=== PATIENT | female | born 1960 | race Caucasian/White ===

== ENCOUNTER → 2020-12-26 | Day surgery (SDC) | payer OTHER ==
--- NOTE | 2020-12-25 19:48 | PCM.PREANE ---
Preanesthetic Assessment - Procedure Proposed Procedure: Right Reverse Total Shoulder - Imaging/EKG Impressions: EKG 12/05/2020: NSR HR 97 Chest xray 12/05/2020: Slight degree of pulmonary underexpansion. No other acute findings are seen. 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 Endocrine/Metabolic History: Reports: Diabetes, Type II, Obesity/BMI 30+ Dermatologic History: Reports: Cellulitis, Psoriasis - Past Surgical History GI Surgical History: Reports: Colonoscopy - SUBSTANCE USE Tobacco Use Status *Q: Former Tobacco User Recreational Drug Use History: No - HOME MEDS Home Medications: Home Meds Ascorbic Acid [Vitamin C] 1 cap PO DAILY 12/23/20 [History] Aspirin [Aspirin EC] 81 mg PO DAILY 12/23/20 [History] Cholecalciferol (Vitamin D3) [Vitamin D3] 1 cap PO DAILY 12/23/20 [History] Glucosam/Chond/Collagen/Hyalur [Glucosamine Chondroitin] 1 cap PO DAILY 12/23/20 [History] L.acidoph,Paracasei, B.lactis [Probiotic] 1 cap PO DAILY 12/23/20 [History] Magnesium 400 mg PO DAILY 12/23/20 [History] Non-Formulary Medication [NF Drug] 1 cap PO DAILY 12/23/20 [History] Non-Formulary Medication [NF Drug] 1 tab PO DAILY 12/23/20 [History] Non-Formulary Medication [NF Drug] 2 tab PO DAILY 12/23/20 [History] Non-Formulary Medication [NF Drug] 2 tab PO DAILY 12/23/20 [History] Omeprazole Magnesium [Prilosec Otc] 20 mg PO DAILY 12/23/20 [History] Tumeric/Ging/[place]/Oreg/Capryl [Candicidal Capsule] 1 cap PO DAILY 12/23/20 [History] Zinc 50 mg PO DAILY 12/23/20 [History] amLODIPine [Norvasc] 5 mg PO DAILY 12/23/20 [History] metFORMIN [Glucophage XR] 500 mg PO BID 12/23/20 [History] - CURRENT (IN HOUSE) MEDS Current Meds: Current Medications Acetaminophen (Acetaminophen 325 Mg Tab) 975 mg PO ONETIME GUSTABO Stop: 12/26/20 16:00 Lactated Ringer's (Ringers, Lactated) 1,000 mls @ 125 mls/hr IV ASDIRECTED GUSTABO Stop: 12/26/20 23:00 Lidocaine/Sodium Bicarbonate (Lidocaine 1%/Sod Bicarbonate In Ns 8.4% 1 Ml Syringe) 0.25 ml IDERM ONETIME PRN PRN Reason: Prior to IV Start Stop: 12/26/20 18:00 Oxycodone HCl (Oxycodone Er 10 Mg Tab.Er) 10 mg PO ONETIME GUSTABO Stop: 12/26/20 16:00 Pregabalin (Pregabalin 25 Mg Cap) 50 mg PO ONETIME GUSTABO Stop: 12/26/20 16:00 Sodium Chloride (Sodium Chloride 0.9% 10 Ml Syringe) 10 ml FLUSH ASDIRECTED PRN PRN Reason: Keep Vein Open Stop: 12/26/20 18:00
[~2020-12-26] MED LIST: Acetaminophen 325 MG Tab PO SCH; Albuterol 0.083% 2.5 MG/3 ML Neb Soln NEB ONE; Cyclobenzaprine 10 MG Tab PO PRN; EPINEPHrine 1 MG/ML SDV ONE; Lactated Ringers 1,000 ML IV SCH; Lactated Ringers 1,000 ML ONE; Lidocaine 1% 2 ML ONE; Lidocaine 1% 4 ML ONE; Lidocaine 1%/Sod Bicarbonate in NS 8.4% 1 ML Syringe IDERM PRN; Midazolam 1 MG/ML 2 ML SDV ONE; Ondansetron 4 MG/2 ML SDV ONE; Pregabalin 25 MG Cap PO SCH; Propofol 200 MG/20 ML SDV ONE; Rocuronium 50 MG/5 ML Vial ONE; Ropivacaine 0.5% 5 MG/ML 30 ML SDV ONE; Sodium Chloride 0.9% 10 ML Syringe FLUSH PRN; Vancomycin 1 GM SDV ONE; ceFAZolin 1 GM Vial ONE; ePHEDrine 50 MG/ML SDV ONE; fentaNYL 100 MCG/2 ML SDV IVPUSH PRN; fentaNYL 100 MCG/2 ML SDV ONE; oxyCODONE 5 MG Tab PO PRN; oxyCODONE ER 10 MG TAB.ER PO SCH
--- NOTE | 2020-12-26 09:23 | PCM.PREANE ---
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) Other: Reports: Diabetes (119 this am) - Physical Assessment NPO Status Date: 12/25/20 NPO Status Time: 00:00 Height: 1.57 m Weight: 98.8 kg ASA Class: 3 Mental Status: Alert & Oriented x3 Airway Class: Mallampati = 2 Dentition: Reports: Partial (top and bottom) Thyro-Mental Finger Breadths: 2 Mouth Opening Finger Breadths: 2 ROM/Head Extension: Full Lungs: Clear to Auscultation, Normal Respiratory Effort Cardiovascular: Regular Rate, Regular Rhythm - Imaging/EKG Impressions: EKG NSR rate97 - Allergies Allergies/Adverse Reactions: Allergies Allergy/AdvReac Type Severity Reaction Status Date / Time rosuvastatin [From Crestor] Allergy Muscle Verified 12/23/20 11:38 Aches - Blood Blood Available: No Product(s) Available: None - Anesthesia Plan Pre-Op Medication Ordered: None - Acknowledgements Anesthesia Type Planned: General Anesthesia, Regional Block (right interscalene block for post-op pain control) Pt an Appropriate Candidate for the Planned Anesthesia: Yes Alternatives and Risks of Anesthesia Discussed w Pt/Guardian: Yes Pt/Guardian Understands and Agrees with Anesthesia Plan: Yes PreAnesthesia Questionnaire Other HEENT History: partial upper and lower dentures Cardiovascular History: Reports: High Cholesterol, Hypertension Gastrointestinal History: Reports: Other (See Below) Other Gastrointestinal History: esophageal stricture 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: Reports: Spontaneous Musculoskeletal History: Reports: Arthritis Neurological History: Reports: Other (See Below) 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 Endocrine/Metabolic History: Reports: Diabetes, Type II Dermatologic History: Reports: Cellulitis, Psoriasis - Past Surgical History GI Surgical History: Reports: Colonoscopy - SUBSTANCE USE Tobacco Use Status *Q: Former Tobacco User Tobacco Use Within Last Twelve Months: No Second Hand Smoke Exposure: No Days Per Week of Alcohol Use: 0 Number of Drinks Per Day: 0 Total Drinks Per Week: 0 Recreational Drug Use History: No - HOME MEDS Home Medications: Home Meds Ascorbic Acid [Vitamin C] 1 cap PO DAILY 12/23/20 [History] Cholecalciferol (Vitamin D3) [Vitamin D3] 1 cap PO DAILY 12/23/20 [History] Glucosam/Chond/Collagen/Hyalur [Glucosamine Chondroitin] 1 cap PO DAILY 12/23/20 [History] L.acidoph,Paracasei, B.lactis [Probiotic] 1 cap PO DAILY 12/23/20 [History] Magnesium 400 mg PO DAILY 12/23/20 [History] Non-Formulary Medication [NF Drug] 1 cap PO DAILY 12/23/20 [History] Non-Formulary Medication [NF Drug] 1 tab PO DAILY 12/23/20 [History] Non-Formulary Medication [NF Drug] 2 tab PO DAILY 12/23/20 [History] Non-Formulary Medication [NF Drug] 2 tab PO DAILY 12/23/20 [History] Omeprazole Magnesium [Prilosec Otc] 20 mg PO DAILY 12/23/20 [History] Tumeric/Ging/[place]/Oreg/Capryl [Candicidal Capsule] 1 cap PO DAILY 12/23/20 [History] Zinc 50 mg PO DAILY 12/23/20 [History] amLODIPine [Norvasc] 5 mg PO DAILY 12/23/20 [History] metFORMIN [Glucophage XR] 500 mg PO BID 12/23/20 [History] Aspirin [Aspirin EC] 325 mg PO DAILY #30 tablet. 12/26/20 [Rx] Cyclobenzaprine [Flexeril] 10 mg PO BID PRN #20 tab 12/26/20 [Rx] oxyCODONE 5 - 10 mg PO Q4H PRN #40 tab 12/26/20 [Rx] - CURRENT (IN HOUSE) MEDS Current Meds: Current Medications Acetaminophen (Acetaminophen 325 Mg Tab) 975 mg PO ONETIME GUSTABO Stop: 12/26/20 16:00 Lactated Ringer's (Ringers, Lactated) 1,000 mls @ 125 mls/hr IV ASDIRECTED GUSTABO Stop: 12/26/20 23:00 Lidocaine/Sodium Bicarbonate (Lidocaine 1%/Sod Bicarbonate In Ns 8.4% 1 Ml Syringe) 0.25 ml IDERM ONETIME PRN PRN Reason: Prior to IV Start Stop: 12/26/20 18:00 Oxycodone HCl (Oxycodone Er 10 Mg Tab.Er) 10 mg PO ONETIME GUSTABO Stop: 12/26/20 16:00 Pregabalin (Pregabalin 25 Mg Cap) 50 mg PO ONETIME GUSTABO Stop: 12/26/20 16:00 Sodium Chloride (Sodium Chloride 0.9% 10 Ml Syringe) 10 ml FLUSH ASDIRECTED PRN PRN Reason: Keep Vein Open Stop: 12/26/20 18:00 Discontinued Medications Epinephrine HCl (Epinephrine 1 Mg/Ml Sdv) Confirm Administered Dose 1 mg .ROUTE .STK-MED ONE Stop: 12/26/20 06:20 Ropivacaine (Ropivacaine 0.5% 5 Mg/Ml 30 Ml Sdv) Confirm Administered Dose 30 ml .ROUTE .STK-MED ONE Stop: 12/26/20 06:20 Tranexamic Acid (Tranexamic Acid 1,000 Mg/10 Ml Amp) Confirm Administered Dose 1,000 mg .ROUTE .STK-MED ONE Stop: 12/26/20 09:14 Vancomycin HCl (Vancomycin 1 Gm Sdv) Confirm Administered Dose 1 gm .ROUTE .STK- MED ONE Stop: 12/26/20 09:14
--- NOTE | 2020-12-26 12:25 | CR ---
Right shoulder: 3 fluoroscopic spot views were obtained of the right shoulder utilizing C-arm device. Comparison: No prior right shoulder study. Reverse right shoulder prosthesis is noted. Components are aligned. Underlying bony structures show nothing acute. Fluoroscopy time is given as 3.2 seconds. Impression: 1. Procedural study as noted above. Diagnostic code #1
--- NOTE | 2020-12-26 12:25 | PCM.POSTAN ---
POST ANESTHESIA ASSESSMENT - MENTAL STATUS Mental Status: Alert, Oriented - VITAL SIGNS Vital Signs: Last Vital Signs Temp 37.0 C 12/26/20 10:04 Pulse 78 12/26/20 10:04 Resp 12 12/26/20 10:04 BP 112/73 12/26/20 10:04 Pulse Ox 98 12/26/20 10:04 - RESPIRATORY Respiratory Status: Respiratory Rate WNL, Airway Patent, O2 Saturation Stable, Supplemental Oxygen - CARDIOVASCULAR CV Status: Pulse Rate WNL, Blood Pressure Stable - GASTROINTESTINAL GI Status: No Symptoms - PAIN Pain Score: 0 - POST OP HYDRATION Hydration Status: Adequate & Stable - OBSERVATIONS Free Text/Narrative:: no anesthesia complications noted
--- NOTE | 2020-12-26 12:36 | PCM.SN.2 ---
- Free Text/Narrative Note: Date: 08/28/2020 Time Out:951 Start: 951 Stop: 1003 Surgical Procedure: Right total reverse shoulder Diagnosis Right Shoulder OA Current Procedure: Right interscalene block under US guidance for postoperative pain control requested by Dr. Gipson. Patient chart reviewed, risk/benefits discussed with patient, consent obtained. Patient positioned supine, monitors/alarms on, oxygen placed via nasal cannula at 2 LPM. IV sedation administered: Versed 2mg IV, Fentanyl 50mcg IV given in preop prior to block placement. Right shoulder prepped with two chloropreps. Sterile drapes placed with aseptic technique noted. Under US guidance, right subclavian artery visualized along with the right brachial plexus. Plexus followed up to C6 cricoid level, and area localized with 2mls of 1% lidocaine. 22gauge 2 inch stimiplex needle advanced under US with 0.6mV with stimulation of biceps noted. Good stimulation noted with decreased voltage and absent at 0.3mVs. 1ml of Normal Saline injected with loss of stimulation noted to confirm needle not placed intraneurally. Incremental dosing of 5mls with negative aspiration noted prior to each injection of 0.5% ropivacaine with 1:200,000 epinephrine. Total volume=30mls. Please refer to nurses noted for vital signs. Bam Ramos CRNA
--- NOTE | 2020-12-26 13:00 | PCM48HPAN ---
Post Anesthesia Note - EVALUATION WITHIN 48HRS OF ANESTHETIC Vital Signs in Normal Range: Yes Patient Participated in Evaluation: Yes Respiratory Function Stable: Yes ("slight sore throat") Airway Patent: Yes Cardiovascular Function Stable: Yes Hydration Status Stable: Yes Pain Control Satisfactory: Yes Nausea and Vomiting Control Satisfactory: Yes Mental Status Recovered: Yes Vital Signs: Last Vital Signs Temp 36.5 C 12/26/20 12:30 Pulse 104 H 12/26/20 12:45 Resp 11 L 12/26/20 12:45 BP 117/87 12/26/20 12:45 Pulse Ox 93 L 12/26/20 12:50 - COMMENTS/OBSERVATIONS Free Text/Narrative:: no anesthesia complications noted
--- NOTE | 2020-12-26 14:22 | CR ---
Right shoulder: Single AP view of the right shoulder was obtained. Comparison: Prior operative study performed earlier the same day (11:42 AM). Reverse right shoulder prosthesis is seen. Components are aligned. Underlying bony structures are intact. Impression: 1. Satisfactory radiographic appearance of recently placed right shoulder prosthesis. Diagnostic code #2
--- NOTE | 2021-01-02 17:01 | PCM.OPNOTE ---
- General Post-Op/Procedure Note Date of Surgery/Procedure: 12/26/20 Operative Procedure(s): right reverse total shoulder arthroplasty Pre Op Diagnosis: right shoulder rotator cuff tear arthropathy Post-Op Diagnosis: Same Anesthesia Technique: General ET Tube, Regional Block Primary Surgeon: Don Gipson Anesthesia Provider: Bam Ramos Hydrodynamics Professor: Carmen Kennedy Hydrodynamics Professor: Renetta Connolly EBL in mLs: 150 Complications: None Condition: Good Free Text/Narrative:: 9 stem 32+6 4mm poly 28 base plagte
--- NOTE | 2021-01-02 17:52 | OR ---
DATE OF OPERATION: 12/26/2020 SURGEON: Don Gipson MD OPERATION PERFORMED: Right reverse total shoulder arthroplasty. PREOPERATIVE DIAGNOSIS: Right shoulder rotator cuff tear arthropathy. POSTOPERATIVE DIAGNOSIS: Right shoulder rotator cuff tear arthropathy. ANESTHESIA: General endotracheal intubation with regional interscalene block. ANESTHESIA PROVIDER: Chinmay Keenan. MOBILE APPLICATION ENGINEER: Carmen Kennedy PA-C and Renetta Connolly LPN. ESTIMATED BLOOD LOSS: 150 mL. COMPLICATIONS: None. CONDITION: Stable. IMPLANT: 1. [place] size 9, 135-degree reverse humeral stem. 2. [place] size 32, +6 glenosphere. 3. [place] size 4 mm polyethylene insert. 4. [place] size 28 mm concentric base plate. DESCRIPTION OF PROCEDURE: The patient was identified in the preoperative holding area where proper site was marked and identified by the surgeon. The patient was taken back to the operative theater, where after adequate anesthesia, the patient's right upper extremity was sterilely prepped and draped in the usual sterile fashion. OR time-out was performed. The patient received 2 g of IV Ancef. At this time, standard deltopectoral incision was made. Cephalic vein was identified and was retracted laterally with the deltoid. The clavipectoral fascia was incised and the conjoined tendon was retracted medially. At this time, anterior humeral circumflex vessels were ligated. Biceps tendon was identified and subpectoral tenodesis was performed with a #2 FiberWire. Biceps was then cut proximal to this and was taken back all the way back to the level of the glenoid. Peel down of the subscapularis with the tendon was done. Humeral head was then dislocated and humeral head cut was completed and found to be adequate. Osteophytes were rongeured off. Attention was turned to the glenoid. Anterior and posterior glenoid retractors were then placed. Circumferential removal of the labrum was done at this time as well as a partial capsulectomy. Guide pin was placed in a center-center position and the 32 mm reamer was then utilized. It had good bony bleeding bed with positive smile sign. At this time, the guide pin was removed. The central screw was then tapped and the 28 mm concentric base plate was then compressed against the glenoid with a central compression screw. An inferior and superior locking screw were then placed in divergent fashion. There was found to have adequate fixation of the glenoid. The 32, +6 glenosphere was impacted into place and attention was turned to humerus. Starter awl was placed down the canal. Starting with a size 7 broach, I was able to broach up to a size 9 and roughly 30 degrees of retroversion. Trial implants were then placed and the patient had good tension with no over tensioning with +4 liner, +6 for the total construct with good range of motion throughout. C-arm fluoroscopy showed all implants to be well aligned. The trial implants were then removed. The size 9 humeral stem with a 4 mm poly was constructed on the back table and then impacted into the humerus. The humerus was then relocated. C-arm fluoroscopy showed no fractures with well-aligned components. 1 L of pulse lavage irrigation with Ancef was irrigated through the shoulder along with 400 mL IrriSept irrigation. Topical tranexamic acid and vancomycin powder were applied. At this time, 2-0 Vicryl was used subcutaneously, and Prineo was used for closure of skin. The patient had a sterile soft dressing applied as well as a pillow sling and sent to PACU in stable condition. MMODAL /[id number]
== END | disposition home or self-care (01) ==
LOC: JD.SDS 09:04
PROVIDERS: ATTEND Orthopaedic Surgery
DX: M75.101 Unspecified rotator cuff tear or rupture of right shoulder, not specified as traumatic (principal); M19.011 Primary osteoarthritis, right shoulder; E66.01 Morbid (severe) obesity due to excess calories; I10 Essential (primary) hypertension; G89.18 Other acute postprocedural pain; E11.9 Type 2 diabetes mellitus without complications; E78.00 Pure hypercholesterolemia, unspecified; Z88.8 Allergy status to other drugs, medicaments and biological substances; Z79.899 Other long term (current) drug therapy; Z79.82 Long term (current) use of aspirin; Z87.891 Personal history of nicotine dependence; Z68.41 Body mass index [BMI] 40.0-44.9, adult
CPT/HCPCS: 23472; 73020; 76000; 82947; 94640; 97161; A9270; C1713; C1769; C1776; J0171; J0690; J2250; J2370; J2405; J2704; J2795; J3010; J3370; J7120; 01638; 64415; 76942